=== PATIENT | male | born 1985 | race Caucasian/White ===

== ENCOUNTER 2016-10-29 18:56 | Inpatient (IN) | payer OTHER ==
[~2016-10-29] VITALS: Ht 177.8 cm; Wt 83.9 kg
--- NOTE | ~2016-10-29 | EKG ---
[address] [place] [address] ELECTROCARDIOGRAM REPORT Name: TYE PHILLIP Room #: 451-P [facility]..#: [id number] Admission: 10/29/16 Attend Phys: Elvis Ang MD Discharge: Date of : 83 Report #: [id number] THIS REPORT FOR: //name// [facility] ED Test Date: 2016-10-29 Test Time: 19:07:14 Pat Name: TYE PHILLIP Department: Room: [facility] Gender: M [employer]phalt Paver: Murphy ARTHUR : 1985 Requested By: Damir Gaming Order Number: [id number] MD: Christopher Veloz Measurements Intervals [place] Rate: 108 P: 41 MO: 171 QRS: -5 QRSD: 88 T: 48 QT: 323 QTc: 433 Interpretive Statements Sinus tachycardia Otherwise normal tracing Baseline wander in lead(s) III,V3,V6 Compared to ECG 12/25/2015 19:18:06 No significant change was found Electronically Signed On 10-30-2016 7:48:04 CDT by Christopher Veloz [email or web address] <ELECTRONICALLY SIGNED> By: Christopher Veloz MD, [facility] 10/30/16 0748 [id number] 1907 Christopher Veloz MD, [facility] /EPI
[~2016-10-29 18:56] MED LIST: ACAMPROSATE CA333 MG PO; ATIVAN0.5 MG PO; BELSOMRA10 MG PO; FLEXERIL PO; LAMICTAL100 MG PO; LEXAPRO 10 MG T10 M1 PO; LEXAPRO 10 MG T10 M2 PO; MULTIVITAMINS1 EAC7 PO; NEURONTIN 300300 M1 PO; RESTORIL15 MG PO; TRINATE TABLET1 TAB PO; VITAMIN B-1100 M2 PO
[2016-10-29 18:57] VITALS: BP 121/81
[2016-10-29 19:19] LABS: ABSOLUTE NEUTROPHILS 6.4 thou/uL (1.4-8.2); BASOPHILS 0.5 % (0.0-2.0); EOSINOPHILS 0.3 % (0.0-3.0); HEMOGLOBIN 18.4 gm/dL (14.0-18.0); LYMPHOCYTES 15.5 % (24.0-44.0); MCH 31.3 pg (26.0-34.0); MCHC 35.3 g/dL (28.0-37.0); MCV 88.7 fL (80.0-100.0); MONOCYTES 4.4 % (1.0-8.0); PLATELET COUNT 286 thou/uL (150-400); POLYS 79.3 % (36.0-66.0); RBC 5.86 mil/uL (4.50-6.00); RDW 14.3 % (10.5-14.5)
[2016-10-29 19:28] LABS: MANUAL DIFF NO
[2016-10-29 19:33] LABS: ANION GAP 16 mmol/L (7-16); BUN 10 mg/dL (7-18); CALCIUM 8.8 mg/dL (8.5-10.1); CHLORIDE 103 mmol/L (98-107); CO2 24 mmol/L (21-32); CREATININE 0.8 mg/dL (0.7-1.3); GLUCOSE 116 mg/dL (74-106); SODIUM 143 mmol/L (136-145)
[2016-10-29 19:38] LABS: ALBUMIN 4.4 g/dL (3.4-5.0); ALKALINE PHOSPHATASE 77 U/L (46-116); SALICYLATE < 2.8 mg/dL (2.8-20.0); SGOT 26 U/L (15-37); SGPT 31 U/L (30-65); TOTAL BILIRUBIN 0.4 mg/dL (<0.1-1.0); TOTAL PROTEIN 8.1 g/dL (6.4-8.2)
[2016-10-29 19:43] LABS: AMP/METHAMP Negative (Negative); BARBITURATES Negative (Negative); BENZODIAZEPINES Negative (Negative); COCAINE Negative (Negative); METHADONE Negative (Negative); OPIATES Negative (Negative); PCP Negative (Negative); THC Negative (Negative)
[2016-10-29 19:50] LABS: ACETAMINOPHEN < 2 ug/mL (10-30)
[2016-10-29 22:18] VITALS: BP 129/83
[2016-10-30 00:17] LABS: FOLIC ACID 12.5 ng/mL (8.6-58.9)
[2016-10-30 02:50] VITALS: BP 138/76
[2016-10-30 06:35] LABS: HEMATOCRIT 48.4 % (42.0-52.0); HEMOGLOBIN 16.3 gm/dL (14.0-18.0); MCH 30.7 pg (26.0-34.0); MCHC 33.7 g/dL (28.0-37.0); MCV 91.2 fL (80.0-100.0); RBC 5.31 mil/uL (4.50-6.00); RDW 14.3 % (10.5-14.5); WBC 8.3 thou/uL (4.0-11.0)
[2016-10-30 06:50] LABS: CALCIUM 8.9 mg/dL (8.5-10.1); CREATININE 0.8 mg/dL (0.7-1.3); POTASSIUM 3.6 mmol/L (3.5-5.1)
[2016-10-30 07:46] VITALS: BP 131/84
[2016-10-30 11:09] VITALS: BP 151/94
[2016-10-30 12:08] LABS: FREE T4 1.25 ng/dL (0.82-1.77)
[2016-10-30 15:26] VITALS: BP 152/88
[2016-10-30 19:19] VITALS: BP 143/98
[2016-10-31 04:10] VITALS: BP 126/82
[2016-10-31 06:10] LABS: CREATININE 0.9 mg/dL (0.7-1.3); MAGNESIUM 1.9 mg/dL (1.8-2.4); PHOSPHORUS 3.7 mg/dL (2.5-4.9); POTASSIUM 3.6 mmol/L (3.5-5.1)
[2016-10-31 08:58] VITALS: BP 116/78
[2016-10-31] MEDS ORDERED: XANAX 0.25 MG0.25 MG PO (10:27)
[2016-10-31 12:06] VITALS: BP 116/78
== END 2016-10-31 12:42 | disposition home or self-care (01) | DRG 897 ==
LOC: ER 18:56 → EROBS 21:38 → 4W 21:38
PROVIDERS: Emergency Medicine; Nurse Practitioner Family
DX: F10.129 Alcohol abuse with intoxication, unspecified (principal); R45.851 Suicidal ideations; F17.210 Nicotine dependence, cigarettes, uncomplicated; F32.9 Major depressive disorder, single episode, unspecified; Y90.8 Blood alcohol level of 240 mg/100 ml or more; Z79.899 Other long term (current) drug therapy
CPT/HCPCS: 10045

== ENCOUNTER 2016-12-30 18:23 | Inpatient (IN) | payer OTHER ==
[~2016-12-30] VITALS: Ht 177.8 cm; Wt 80.7 kg
--- NOTE | ~2016-12-30 | EKG ---
[place] [address] [address] [place] [address] ELECTROCARDIOGRAM REPORT Name: TYE PHILLIP Room #: 454-P [facility] IN M.R.#: [id number] Admission: 12/30/16 Attend Phys: Devante Farias Discharge: 12/31/16 Date of : 83 Report #: [id number] THIS REPORT FOR: //name// [facility] ED Test Date: 2016-12-30 Test Time: 19:38:10 Pat Name: TYE PHILLIP Department: Room: [facility] Gender: M [employer]: Joseph RAMIREZ : 1985 Requested By: Michel Tran Order Number: [id number] MD: Christopher Veloz Measurements Intervals [place] Rate: 126 P: 35 NE: 161 QRS: 3 QRSD: 85 T: 12 QT: 304 QTc: 441 Interpretive Statements Sinus tachycardia RSR' in V1 or V2, probably normal variant Compared to ECG 10/29/2016 19:07:14 RSR' in V1 or V2 now present Electronically Signed On 01-01-2017 7:19:58 CDT by Christopher Veloz [email or web address] <ELECTRONICALLY SIGNED> By: Christopher Veloz MD, [facility] 01/01/17 0719 37 37 Christopher Veloz MD, [facility] /EPI
[~2016-12-30 18:23] MED LIST changes: +XANAX 0.25 MG0.25 MG PO
[2016-12-30 18:25] VITALS: BP 128/89
[2016-12-30] MEDS ORDERED: LIORESAL 10 MG10 MG PO (19:13)
[2016-12-30] MEDS ORDERED: REMERON15 MG PO (19:13)
[2016-12-30 19:36] LABS: ABSOLUTE NEUTROPHILS 15.9 thou/uL (1.4-8.2); BASOPHILS 0.4 % (0.0-2.0); EOSINOPHILS 0.1 % (0.0-3.0); HEMATOCRIT 49.3 % (42.0-52.0); HEMOGLOBIN 17.2 gm/dL (14.0-18.0); MANUAL DIFF NO; MCH 31.5 pg (26.0-34.0); MCHC 34.9 g/dL (28.0-37.0); MCV 90.2 fL (80.0-100.0); MONOCYTES 6.2 % (1.0-8.0); PLATELET COUNT 314 thou/uL (150-400); POLYS 80.3 % (36.0-66.0); RBC 5.47 mil/uL (4.50-6.00); RDW 13.1 % (10.5-14.5); WBC 19.7 thou/uL (4.0-11.0)
[2016-12-30 19:39] LABS: CALCIUM 8.9 mg/dL (8.5-10.1); CREATININE 0.9 mg/dL (0.7-1.3); POTASSIUM 4.2 mmol/L (3.5-5.1)
[2016-12-30 19:45] LABS: DIRECT BILIRUBIN 0.2 mg/dL (<0.1-0.3); TOTAL BILIRUBIN 0.4 mg/dL (<0.1-1.0)
[2016-12-30 20:28] LABS: URINE BILIRUBIN NEGATIVE (Negative); URINE BLOOD 1+ (Negative); URINE COLOR YELLOW; URINE GLUCOSE-RANDOM* NEGATIVE (Negative); URINE KETONES 1+ (Negative); URINE LEUKOCYTES-REFLEX NEGATIVE (Negative); URINE PROTEIN (DIPSTICK) 2+ (Negative); URINE UROBILINOGEN 0.2 E.U./dl (0.2-1.0)
[2016-12-30 20:34] LABS: AMP/METHAMP Negative (Negative); BARBITURATES Negative (Negative); BENZODIAZEPINES Negative (Negative); COCAINE Negative (Negative); METHADONE Negative (Negative); OPIATES Negative (Negative); PCP Negative (Negative); THC Negative (Negative)
[2016-12-30 20:40] LABS: CASTS None Seen /LPF (None Seen); CRYSTALS None Seen /LPF (None Seen); SQUAMOUS 0-3 Few /LPF (0-3); URINE RBC 0-2 Rare /HPF (0-2); URINE WBC-REFLEX 0-5 Rare /HPF (0-5)
[2016-12-30 22:12] VITALS: BP 123/66
[2016-12-30 22:37] LABS: FOLIC ACID 17.5 ng/mL (8.6-58.9)
[2016-12-30 22:43] LABS: MAGNESIUM 1.8 mg/dL (1.8-2.4); PHOSPHORUS 3.7 mg/dL (2.5-4.9)
[2016-12-30 23:04] VITALS: BP 107/64
[2016-12-31 04:14] VITALS: BP 124/62
[2016-12-31 06:11] LABS: HEMATOCRIT 41.7 % (42.0-52.0); MCH 31.4 pg (26.0-34.0); MCHC 35.1 g/dL (28.0-37.0); MCV 89.6 fL (80.0-100.0); RBC 4.65 mil/uL (4.50-6.00); RDW 12.7 % (10.5-14.5)
[2016-12-31 06:13] LABS: HEMOGLOBIN 14.6 gm/dL (14.0-18.0)
[2016-12-31 06:29] LABS: ALBUMIN 3.4 g/dL (3.4-5.0); CREATININE 0.9 mg/dL (0.7-1.3); POTASSIUM 3.8 mmol/L (3.5-5.1); TOTAL BILIRUBIN 0.7 mg/dL (<0.1-1.0); TOTAL PROTEIN 6.6 g/dL (6.4-8.2)
[2016-12-31 06:38] LABS: CALCIUM 8.8 mg/dL (8.5-10.1)
[2016-12-31 08:06] VITALS: BP 137/63
[2016-12-31 09:08] LABS: FREE T4 0.93 ng/dL (0.82-1.77)
[2016-12-31] MEDS ORDERED: VITAMIN B-1100 M2 PO (10:25)
[2016-12-31] MEDS ORDERED: CHLORDIAZEPOXID25 M1 PO (10:25)
[2016-12-31] MEDS ORDERED: PRENATAL COMPL1 EACH PO (10:26)
[2016-12-31 11:20] VITALS: BP 137/63
== END 2016-12-31 12:25 | disposition home or self-care (01) | DRG 897 ==
LOC: ER 18:23 → 4W 21:38 → EROBS 21:38 → 4W 22:22
PROVIDERS: Emergency Medicine; Nurse Practitioner Family
DX: F10.230 Alcohol dependence with withdrawal, uncomplicated (principal); F41.1 Generalized anxiety disorder; F17.210 Nicotine dependence, cigarettes, uncomplicated; F32.9 Major depressive disorder, single episode, unspecified; Z79.899 Other long term (current) drug therapy
CPT/HCPCS: 10045